=== PATIENT | male | born 1985 | race Asian ===

== ENCOUNTER 2017-03-02 09:45 | Day surgery (SDC) | payer OTHER ==
[~2017-03-02 09:45] MED LIST: CEFAZOLIN 1 GM INJ; CEFAZOLIN 2 GM/50 ML (PMX) 50 ML IVPB; SOD CHLORIDE 0.9% 1,000 ML IV
[2017-03-02] MEDS ORDERED: PROPOFOL 20 ML (10:41)
[2017-03-02] MEDS ORDERED: ROCURONIUM 50 MG INJ (10:41)
[2017-03-02] MEDS ORDERED: FENTAnyl 50 MCG/ML VIAL ×2 (10:41→11:43)
[2017-03-02] MEDS ORDERED: MIDAZOLAM 1 MG/ML 2 ML INJ (10:41)
[2017-03-02] MEDS ORDERED: OXYCODONE/ACETAMINOPHEN (5/325) TAB PO (11:00)
[2017-03-02] MEDS ORDERED: METOCLOPRAMIDE 10 MG INJ IV (11:00)
[2017-03-02] MEDS ORDERED: DIPHENHYDRAMINE 50 MG INJ IV (11:00)
[2017-03-02] MEDS ORDERED: EPHEDrine SULFATE 50 MG/5 ML SYG IV (11:00)
[2017-03-02] MEDS ORDERED: LABETALOL HCL 20MG INJ IV (11:00)
[2017-03-02] MEDS ORDERED: FENTAnyl 50 MCG/ML VIAL IV ×3 (11:00)
[2017-03-02] MEDS ORDERED: hydrALAzine 20 MG INJ IV (11:00)
[2017-03-02] MEDS ORDERED: HYDROmorphONE (0.2 MG/ML) 10ML SYG IV ×3 (11:00)
[2017-03-02] MEDS ORDERED: METOCLOPRAMIDE 10 MG INJ (11:47)
[2017-03-02] MEDS ORDERED: ONDANSETRON 4 MG INJ (11:47)
[2017-03-02] MEDS ORDERED: KETOROLAC 30 MG INJ (11:48)
[2017-03-02] MEDS ORDERED: DEXAMETHASONE 4 MG/ML 1 ML INJ (11:48)
[2017-03-02] MEDS ORDERED: SUGAMMADEX SODIUM 200 MG/2 ML VIAL IV ×3 (11:48→12:13)
[2017-03-02] MEDS ORDERED: HYDROCODONE/APAP (5/325) TAB PO (12:00)
[2017-03-02] MEDS: BUPIVACAINE 0.25% (MPF) 30 ML INJ (12:01)
[2017-03-02] MEDS: MEPERIDINE 25 MG INJ IV (12:39)
[2017-03-02] MEDS: ONDANSETRON 4 MG INJ IV (12:40)
== END 2017-03-02 13:33 | disposition home or self-care (01) ==
LOC: SDS 09:45
DX: K60.3 Anal fistula (principal)
CPT/HCPCS: 46270; 88304

== ENCOUNTER 2018-03-29 13:46 | Emergency (ER) | payer OTHER ==
[2018-03-29] MEDS: IBUPROFEN 600 MG TAB PO (16:18)
[2018-03-29] MEDS: ACETAMINOPHEN 500 MG TAB PO (16:18)
== END 2018-03-29 17:33 | disposition home or self-care (01) ==
LOC: FTE 13:46
DX: J02.9 Acute pharyngitis, unspecified (principal)
CPT/HCPCS: 99283; Z7502